=== PATIENT | female | born 1975 | race Caucasian/White ===

== ENCOUNTER → 2016-08-21 | Outpatient (CLI) | payer OTHER ==
[~2016-08-21] MED LIST: MEDROL4 MG/DOSE- PO; NEURONTIN100 MG PO; PROAIR RESPICL90 MCG INH; TOPAMAX50 MG PO
== END | disposition home or self-care (01) ==
LOC: CSSDAY 09:56
DX: R51 Headache (principal); Z79.52 Long term (current) use of systemic steroids
CPT/HCPCS: 96365; J2930

== ENCOUNTER → 2016-08-22 | Outpatient (CLI) | payer OTHER | END | disposition home or self-care (01) | LOC: CSSDAY 10:07 | DX: R51 Headache (principal); Z79.52 Long term (current) use of systemic steroids | CPT/HCPCS: 96365; J2930 ==

== ENCOUNTER → 2016-08-23 | Outpatient (CLI) | payer OTHER | END | disposition home or self-care (01) | LOC: CSSDAY 09:55 | DX: R51 Headache (principal); Z79.52 Long term (current) use of systemic steroids | CPT/HCPCS: 96365; J2930 ==

== ENCOUNTER → 2016-08-24 | Outpatient (CLI) | payer OTHER | END | disposition home or self-care (01) | LOC: CSSDAY 09:57 | DX: R51 Headache (principal); Z79.52 Long term (current) use of systemic steroids | CPT/HCPCS: 96365; J2930 ==

== ENCOUNTER → 2016-08-25 | Outpatient (CLI) | payer OTHER | END | disposition home or self-care (01) | LOC: CSSDAY 09:51 | DX: R51 Headache (principal); Z79.52 Long term (current) use of systemic steroids; Z79.899 Other long term (current) drug therapy | CPT/HCPCS: 96365; 96367; 96374; J2930 ==